=== PATIENT | male | born 1970 | race African-American/Black ===

== ENCOUNTER 2017-01-29 08:30 | Emergency (ER) | payer MEDICAID, MEDICARE ==
[~2017-01-29] VITALS: Ht 172.7 cm; Wt 93.2 kg
[~2017-01-29 08:30] MED LIST: ALBUTEROL
[2017-01-29 08:37] VITALS: BP 132/74
== END 2017-01-29 11:03 | disposition home or self-care (01) ==
LOC: ER 10:10
DX: H00.015 Hordeolum externum left lower eyelid (principal); J45.909 Unspecified asthma, uncomplicated
CPT/HCPCS: 99283

== ENCOUNTER 2018-05-02 23:23 | Emergency (ER) | payer MEDICARE ==
[~2018-05-02] VITALS: Ht 175.3 cm; Wt 89.0 kg
[2018-05-03 01:52] VITALS: BP 119/56
== END 2018-05-03 01:53 | disposition home or self-care (01) ==
LOC: ER 23:23
DX: J45.909 Unspecified asthma, uncomplicated (principal); Z76.0 Encounter for issue of repeat prescription
CPT/HCPCS: 99283

== ENCOUNTER 2020-08-31 15:08 | Emergency (ER) | payer MEDICAID, MEDICARE ==
[~2020-08-31] VITALS: Ht 180.3 cm; Wt 91.0 kg
[2020-08-31 15:11] VITALS: BP 126/87
== END 2020-08-31 17:28 | disposition home or self-care (01) ==
LOC: ER 15:08
DX: S86.011A Strain of right Achilles tendon, initial encounter (principal); J45.909 Unspecified asthma, uncomplicated; X58.XXXA Exposure to other specified factors, initial encounter; Y93.89 Activity, other specified; Y92.89 Other specified places as the place of occurrence of the external cause; Y99.8 Other external cause status
CPT/HCPCS: 99281; 99282